=== PATIENT | male | born 1955 | race Caucasian/White ===

== ENCOUNTER 2016-12-21 03:14 | Inpatient (IN) | payer OTHER ==
[~2016-12-21] VITALS: Ht 182.9 cm; Wt 128.4 kg
[~2016-12-21 03:14] MED LIST: AMLODIPINE BESYL5 M1 PO; CRESTOR20 M2 PO; GLUCOPHAGE500 M1 PO; HYZAAR 100-251 EACH PO; PAXIL30 M1 PO
--- NOTE | 2016-12-21 09:30 | Admission Core Measures ---
Admission Meds I reviewed the following Meds: Current Medications Sig/Aureliano Start time Last Medication Dose Stop Time Status Admin Acetaminophen 975 MG ONCE 12/21 0000 NR (Tylenol) 12/21 2358 Amlodipine Besylate 5 MG DAILY 12/21 1000 AC (Norvasc) Atorvastatin Calcium 80 MG 1700 12/21 170 AC (Lipitor) Cefazolin Sodium 3,000 MG ONCE 12/21 0000 NR (Kefzol-Ancef Inj) 12/21 2358 Metformin HCl 250 MG BID 12/21 999 AC (Glucophage) Oxycodone HCl 10 MG ONCE 12/21 0000 NR (Roxicodone) 12/21 2358 Paroxetine HCl 30 MG DAILY 12/21 999 AC (Paxil) Acute Coronary Syndrome Inclusion Criteria ACS Diagnosis No Inpatient Core Measures LDL Reminder: If No, please order W/I first 24hr of stay Congestive Heart Failure Inclusion Criteria CHF Diagnosis No Cerebrovascular accident Inclusion Criteria CVA/TIA Diagnosis No Inpatient Core Measures Bedside Swallow Eval Reminder: If BSE failed, place ST order Antithrombotic Reminder: Order Antithrombotic Medication by end of day 2 Antithrombotic Reminder: Document Reason Antithrombotic Not ordered by end of day 2 AFIB/Flutter Reminder: If Present, add to problem list AFIB/Flutter Reminder: Order Anticoag Medication for pts with AFIB/Flutter Atherosclerosis Reminder: If Present, add to problem list LDL Reminder: If No, please order W/I first 24hr of stay PT Order Reminder: If No, please order Venous thromboembolism Inpatient Core Measures VTE Risk Factors: Age > 40, Surgery No [facility] VTE prophylaxis d/t No contraindications No VTE Pharm Prophylaxis d/t No contraindications Inclusion Criteria - Per Current guidelines, there needs to be overlap - treatment for the first 5 days of Warfarin therapy. - Parenteral Anticoagulation (IV or SC) needs to be - given along with Warfarin therapy. VTE Diagnosis No VTE Type NONE VTE Confirmed by (Test) NONE Problem List As ranked by this Provider includes Assessment & Plan 1. Status post total hip replacement, right HOME MEDS Home Med List Amlodipine Besylate 5 MG TABLET 1 TAB PO DAILY HTN (Reported) Losartan/Hydrochlorothiazide (Hyzaar 100-25 Tablet) 100 MG-25 MG TABLET 1 TAB PO DAILY HTN (Reported) Metformin Hydochloride (Glucophage) 500 MG TABLET 1 TAB PO DAILY DM II ( Reported) Paroxetine HCl (Paxil) 30 MG TABLET 1 TAB PO DAILY ANXIETY / DEPRESSION ( Reported) Rosuvastatin Calcium (Crestor) 20 MG TABLET 1 TAB PO DAILY CHOLESTEROL ( Reported)
--- NOTE | 2016-12-21 09:33 | Surgical Discharge Summary ---
Visit Information Visit Dates Admission Date: 12/21/16 Discharge Date: 12/22/16 History of Present Illness Chief Complaint: RIGHT HIP PAIN, OSTEOARTHRITIS Surgical History Pertinent Surgical History: unobtainable Review of Systems: SEE H&P Hospital Course Course Attending Physician: JOHN WOO MD Primary Care Physician: ADRIANA CASE MD Hospital Course: Patient was admitted to the hospital for an elective total joint replacement. Procedure was tolerated well and patient was transferred to a general surgical floor. Diet was advanced and tolerated and patient voided spontaneously. PT evaluated and treated. At time of discharge, vital signs were stable and within normal limits, neurovascular status was intact, and pain was controlled with oral pain medications. Complications: None Allergies: Coded Allergies: No Known Allergies (12/20/16) Disposition Summary Disposition Principal Diagnosis: Right hip pain, osteoarthritis Additional Diagnosis: same, s/p right total hip replacement (anterior approach) Discharge Disposition: home health services Discharge Instructions General Discharge Information Code Status: Full Code Patient's Diet: diabetic diet as tolerated Patient's Activity: weight bearing as tolerated. rolling walker assistance as needed. Follow-Up Instructions/Appts: Follow up with Dr. Woo in 6 weeks from date of surgery, contact office to arrange/confirm this appointment Medications at Discharge Discharge Medications: Continue taking these medications: Amlodipine Besylate (Amlodipine Besylate) 5 MG TABLET 1 Tablet ORAL DAILY Comments: Last Taken: 12/22/16 Time: 1000 AM Losartan/Hydrochlorothiazide (Hyzaar 100-25 Tablet) 100 MG-25 MG TABLET 1 Tablet ORAL DAILY Comments: NOT GIVEN IN HOSPITAL Metformin Hydochloride (Glucophage) 500 MG TABLET 1 Tablet ORAL DAILY Comments: 250 MG Last Taken: 12/22/16 Time: 1000 AM Paroxetine HCl (Paxil) 30 MG TABLET 1 Tablet ORAL DAILY Comments: Last Taken: 12/22/16 Time: 1000 AM Rosuvastatin Calcium (Crestor) 20 MG TABLET 1 Tablet ORAL DAILY Comments: Last Taken: 12/21/16 Time: 5:00 PM Start taking the following new medications: Aspirin (Ecotrin*) 325 MG TABLET.DR 1 Tablet ORAL TWICE DAILY Qty = 60 No Refills Comments: Last Taken: 12/22/16 Time: 10:00 AM Docusate Sodium (Colace) 100 MG CAPSULE 1 Capsule ORAL TWICE DAILY Days = 7 No Refills Instructions: STOP TAKING IF YOU DEVELOP LOOSE STOOL/DIARRHEA Comments: Last Taken: 12/22/16 Time: 1000 AM Polyethylene Glycol 3350 (Miralax) 17 GRAM POWD.PACK 1 Packet ORAL DAILY Days = 7 No Refills Instructions: dissolve in water. STOP TAKING IF YOU DEVELOP LOOSE STOOL/DIARRHEA Comments: Last Taken: 12/22/16 Time: 1000 AM Hydromorphone HCl (Dilaudid) 2 MG TABLET 1-2 Tablet ORAL EVERY 4-6 HOURS NEEDED as needed for PAIN Qty = 36 No Refills Comments: Last Taken: 12/22/16 Time: 0940 AM Morphine Sulfate (Ms Contin) 30 MG TABLET.ER 1 Tablet ORAL TWICE DAILY Qty = 5 No Refills Copies To: EVIE KINGSLEY,ADRIANA Reynolds
--- NOTE | 2016-12-21 09:36 | Patient Discharge Instructions ---
Discharge Instructions General Discharge Information You were seen/treated for: right hip pain, osteoarthritis You had these procedures: right total hip replacement, anterior approach Watch for these problems: fever>101.3, increased pain, redness/swelling/drainage, shortness of breath, chest pains, dizziness No bath, but you may shower: Yes Other wound care: see pre-printed sheet Diet Continue normal diet: Yes Recommended Diet: Diabetic Activity Full Activity/No Limits: Yes Activity Self Limited: Yes Activity Limited to: Weight bear as tolerated Other activity limits: rolling walker assistance as needed. continue PT. Acute Coronary Syndrome Inclusion Criteria At DC or during hospital stay patient has or had the following: ACS DIAGNOSIS No Discharge Core Measures Meds if any: Prescribed or Continued at Discharge Meds if any: NOT Prescribed or Continued at Discharge Congestive Heart Failure Inclusion Criteria At DC or during hospital stay patient has or had the following: CHF DIAGNOSIS No Discharge Core Measures Meds if any: Prescribed or Continued at Discharge Meds if any: NOT Prescribed or Continued at Discharge Cerebrovascular accident Inclusion Criteria At DC or during hospital stay patient has or had the following: CVA/TIA Diagnosis No Discharge Core Measures Meds if any: Prescribed or Continued at Discharge Meds if any: NOT Prescribed or Continued at Discharge Venous thromboembolism Inclusion Criteria VTE Diagnosis No VTE Type NONE VTE Confirmed by (Test) NONE Discharge Core Measures - Per Current guidelines, there needs to be overlap - treatment for the first 5 days of Warfarin therapy. - If discharged on Warfarin prior to 5 days of - overlap therapy, the patient will need to be - assessed for post discharge needs including - *Post discharge parental anticoagulation - *Warfarin and/or parental anticoagulation education - *Follow up date to check INR post discharge At least 5 days overlap therapy as Inpatient No Meds if any: Prescribed or Continued at Discharge Note: Overlap Therapy is Warfarin and Anticoagulant Meds if any: NOT Prescribed or Continued at Discharge
--- NOTE | 2016-12-21 12:12 | RADIOLOGY REPORT ---
EXAMINATION: XR HIP, RIGHT CLINICAL INFORMATION: Status post total hip replacement. COMPARISON: No relevant prior imaging is available. TECHNIQUE: Two views of the right hip. FINDINGS: There are expected postoperative changes following a right total hip arthroplasty. The components of the arthroplasty are intact. No dislocation. No evidence of acute periprosthetic fracture. Soft tissues are unremarkable. IMPRESSION: Expected postoperative changes of a right total hip arthroplasty. No dislocation.
[2016-12-21 13:24] VITALS: BP 152/92
--- NOTE | 2016-12-21 13:30 | NUR ---
ADMISSION NOTE: PT ARRIVED TO FLOOR IN [facility] WITH DISTRIBUTION, A/OX3, RA, IV SITE INTACT, SURG DSG TO RT HIP, C/D/I, NO DURACOLD, +CMS, PAIN 10/24, VSS,ORIENTED TO ROOM, RESTING IN BED AT BEDSIDE. WILL CONTINUE TO MONITOR.
[2016-12-21 15:31] VITALS: BP 122/78
--- NOTE | 2016-12-21 16:23 | PN- Orthopedic ---
Subjective Subjective: Patient received on general surgical floor. Is pod 0 s/p right thr, tolerated procedure but noted difficulty ambulating postoperatively due to dizziness, will be admitted to hospital for recovery. Denies chest pain, shortness of breath, and difficulty breathing. Denies nause and vomitting. Objective Vital Signs and I&Os Vital Signs Date Time Temp Pulse Resp B/P B/P Pulse O2 O2 Flow FiO2 Mean Ox Delivery Rate 12/21 1531 98.4 65 20 122/78 95 Room Air 12/21 1324 96.9 63 18 152/92 96 Room Air Intake & Output 12/21 1600 12/21 0800 12/21 0000 12/20 1600 12/20 0800 12/20 0000 Intake Total Output Total Balance Patient 283 lb 284 lb Weight Weight Reported by Patient Measurement Method Physical Exam: General: Alert and oriented x3, no acute distess Cardiac: RRR, s1s2 Pulmonary: C T A bilaterally Abdomen: Non-tender, non-distended Extremities: Moves all extremities, distal sensation intact. Motor 5/5 in plantar and dorsiflexion bilaterally. Skin warm and well perfused. Bilateral calves soft and non-tender Surgical site: Right hip. Dressing dry and intact. Thigh compartment soft. Assessment/Plan Assessment/Plan This is a 61 year old male, POD 0, s/p Right WALDEMAR. Experienced dizziness when ambulating post operatively, that has since resolved. -Continue IV fluids -Continue diet as tolerated -WBAT on RLE, PT -DVT ppx: ASA 325 bid -ALPS/ambulation for mechanical ppx, teds at discharge -Ancef 2 grams for 2 additional doses for dvt ppx -Antcipate discharge to home in one day -Will d/w Dr Bedoya Core Measures/Miscellaneous Venous Thromboembolism VTE Risk Factors: Age > 40, Surgery VTE Contraindications: No Contraindications VTE Diagnosis: No VTE Type: NONE VTE Confirmed by (Test): NONE Beta Anam Is Beta Anam a Home Med? No Antibiotics Is Patient on Antibiotics? Yes If Yes: prophylaxis
--- NOTE | 2016-12-21 16:39 | Operative Report ---
Operative/Inv Procedure Report Surgery Date: 12/21/16 Name of Procedure: Right total hip replacement Pre-Operative Diagnosis: Primary right hip DJD Post-Operative Diagnosis: Same Estimated Blood Loss: 400 Surgeon/Chronometer Repairer: AMNA KINGSLEY,JOHN Jimenez Anesthesia: block Operative/Procedure Note Note: Description of Procedure: The patient was taken to the operating room and positively identified. After induction of spinal anesthesia and administration of appropriate pre-operative antibiotics, the patient was positioned supine on the operating room table and all bony prominences were well padded. After performing a surgical timeout, the right lower extremity was prepped and draped in the usual sterile fashion. A direct anterior approach was made to the right hip. The incision was carried sharply through superficial soft tissues to the level of the fascia. Meticulous hemostasis was maintained with Bovie electocautery. The fascia over the tensor fascia darian muscle was opened sharply and the interval between the TFL and the sartorius was entered bluntly taking care to stay lateral to the lateral femoral cutaneous nerve. Retractors were placed around the femoral neck and the pericapsular fat was identified. The ascending branches of the lateral femoral circumflex vessels were identified and carefully coagulated. The pericapsular fat and anterior capsule were then resected. A napkin ring osteotomy was performed and the femoral head was removed without difficulty. Attention was then turned to the acetabulum. After appropriate placement of retractors, the acetabulum was exposed. Soft tissue was cleaned from the acetabular margin and notch. Overhanging osteophytes were removed and the teardrop was exposed. The acetabulum was then sequentially reamed to accept a 66 mm Michael Tritanium hemispherical solid back shell. This was impacted into place in the appropriate position and fitted with a 36 mm Trident X3 zero degree polyethylene insert. Attention was then turned to the femur. After performing the appropriate ligament releases, the proximal femur was exposed. It was then sequentially broached to accept a size 9 [place]view accolade 2 stem. This was trialed for leg length and stability. The trial component was removed and the final component was impacted into place. The trunnion was carefully cleaned and fit with a 36 mm, +5 Biolox delta ceramic femoral head. The hip was reduced and put through a full range of motion and found to be stable. The articular space was then irrigated with sterile saline. The periarticular soft tissues were infilitrated with Marcaine. The fascial layer was closed with interrupted #1 vicryl suture and the skin was re-approximated with interrupted 2 -0 vicryl. The skin was closed with a running 3-0 V-Lock suture. Steri-strips and a sterile dressing were applied. The patient was awakened and taken to the recovery room in satisfactory condition.
[2016-12-21 17:30] VITALS: BP 136/80
[2016-12-21 19:30] VITALS: BP 134/80
[2016-12-21] MEDS ORDERED: DILAUDID2 M1 PO (20:09)
[2016-12-21] MEDS ORDERED: ASPIRIN EC325 M2 PO (20:09)
[2016-12-21] MEDS ORDERED: COLACE100 M1 PO (20:09)
[2016-12-21] MEDS ORDERED: MS CONTIN30 M1 PO (20:09)
[2016-12-21] MEDS ORDERED: MIRALAX17 G1 PO (20:09)
[2016-12-21 23:46] VITALS: BP 148/84
[2016-12-22 03:59] VITALS: BP 154/82
[2016-12-22 06:25] VITALS: BP 148/82
--- NOTE | 2016-12-22 09:06 | PN- Orthopedic ---
Subjective Subjective: Patient with pain overnight however feeling much better this morning. He is voiding, he denies any nausea or vomiting or chest pain. Pain medication is helping him. No fever. Objective Vital Signs and I&Os Vital Signs Date Time Temp Pulse Resp B/P B/P Pulse O2 O2 Flow FiO2 Mean Ox Delivery Rate 12/22 624 99.5 82 22 148/82 96 06/08 0359 99.2 78 20 154/82 94 /08 0206 77 95 06/07 2346 98.5 82 22 148/84 97 Room Air 06/07 1930 99.2 81 20 134/80 94 Room Air 06/07 1844 Room Air 06/07 1730 98.9 74 20 136/80 97 Room Air /07 1531 98.4 65 20 122/78 95 Room Air /07 1324 96.9 63 18 152/92 96 Room Air Intake & Output 12/22 1600 /08 0800 06/08 0000 / 1600 /07 0800 06/07 0000 Intake Total 840 465 Output Total 1900 975 Balance -1060 -510 Intake, IV 600 225 Intake, Oral 240 240 Output, Urine 1900 975 Patient 283 lb Weight Weight Reported by Patient Measurement Method Physical Exam: Well-developed well-nourished no apparent distress. HEENT: Atraumatic, extraocular motion intact Neck: Supple, no lymphadenopathy Respiratory: No respiratory distress Extremities: No edema RIGHT lower extremity hip dressing in place, Dressing clean dry and intact with minimal bloody staining Mild thigh edema No signs of infection. No shortening or rotation Hip range of motion is limited and without unexpected pain Neurovascularly intact distally Bilateral calves are supple, nontender. Neuro: Alert and oriented x3 Psych: Mood affect normal, normal memory normal judgment. Skin: Warm and dry, no rash on exposed skin Results Last 48 Hours of Labs: Laboratory Tests 12/22 724 Chemistry Sodium (137 - 145 mmol/L) 134 L Potassium (3.5 - 5.1 mmol/L) 3.8 Chloride (98 - 107 mmol/L) 97 L Carbon Dioxide (22 - 30 mmol/L) 28 Anion Gap (5 - 16) 9 BUN (9 - 20 mg/dL) 16 Creatinine (0.7 - 1.2 mg/dL) 0.8 Estimated GFR (>60 ml/min) > 60 BUN/Creatinine Ratio (7 - 25 %) 20.0 Hematology CBC w Diff Pending WBC Pending RBC Pending Hgb Pending Hct Pending MCV Pending MCH Pending RDW Pending Plt Count Pending MPV Pending PUBS MCHC Pending Assessment/Plan Assessment/Plan Postop day #1 status post right total hip arthroplasty anterior approach Cleared physical therapy Aspirin for DVT prophylaxis Labs pending this morning, if stable, may discharge home today Discussed with patient, follow-up in 6 weeks Dressing change tomorrow by [facility] Core Measures/Miscellaneous Venous Thromboembolism VTE Risk Factors: Age > 40, Surgery VTE Contraindications: No Contraindications VTE Diagnosis: No VTE Type: NONE VTE Confirmed by (Test): NONE Beta Anam Is Beta Anam a Home Med? No Antibiotics Is Patient on Antibiotics? Yes If Yes: prophylaxis
[2016-12-22 09:09] LABS: ABSOLUTE BASOPHIL COUNT 0 /CUMM (0.0-0.2); ABSOLUTE EOSINOPHIL COUNT 0.1 /CUMM (0.0-0.7); ABSOLUTE GRANULOCYTE CT 6.5 /CUMM (1.4-6.5); ABSOLUTE LYMPH COUNT 1.9 /CUMM (1.2-3.4); ABSOLUTE MONOCYTE COUNT 1.1 /CUMM (0.10-0.60); BASOPHIL % 0.2 % (0.0-2.0); EOSINOPHIL % 0.7 % (0-5); GRANULOCYTE % 67.7 % (42.2-75.2); HEMATOCRIT 33.9 % (42-52); MEAN CORPUSCULAR HGB CONC 33.5 G/DL (33.0-37.0); MEAN CORPUSCULAR VOLUME 83.3 FL (80.0-94.0); MEAN PLATELET VOLUME 9.6 FL (7.4-10.4); PLATELET COUNT 195 /CUMM (130-400); RBC DISTRIBUTION WIDTH 13.9 % (11.5-14.5); RED BLOOD CELL CT 4.06 /CUMM (4.70-6.10); WHITE BLOOD CELL COUNT 9.6 /CUMM (4.8-10.8)
[2016-12-22 14:19] VITALS: BP 134/82
--- NOTE | 2016-12-22 18:10 | NUR ---
ALERT AND ORIENTED X 3. USES CPAP PRN. DENIES SHORTNESS OF BREATH. LUNGS CLEAR VITAL SIGNS STABLE. DENIES CHEST PAIN. + PULSES. DENIES NUMBNESS/TINGLING DSG TO RLE IS C/D/I. MEDICATION GIVEN FOR PAIN VERBALIZED UNDERSTANDING OF DISCHARGE PLAN
== END 2016-12-22 18:15 | disposition home health service (06) | DRG 470 ==
LOC: SDA 03:14 → 2NB 03:14 → ENRESERV 11:42 → ENTRNSPT 12:54 → EDTRNSPTSTS 12:57 → 2NB 13:07 → CMPTRNSPT 13:21 → ENPENDDIS 12-22 09:11 → 2NB 12-22 18:15
PROVIDERS: Physician Assistant Surgical; ADMIT Orthopaedic Surgery
PROC: 0SR904A Replacement of Right Hip Joint with Ceramic on Polyethylene Synthetic Substitute, Uncemented, Open Approach (ICD-10-PCS; principal; 2016-12-21)
DX: M16.11 Unilateral primary osteoarthritis, right hip (principal); I10 Essential (primary) hypertension; F41.8 Other specified anxiety disorders; E11.9 Type 2 diabetes mellitus without complications; Z79.84 Long term (current) use of oral hypoglycemic drugs; E78.5 Hyperlipidemia, unspecified; K21.9 Gastro-esophageal reflux disease without esophagitis; G47.33 Obstructive sleep apnea (adult) (pediatric)
CPT/HCPCS: 2NBP; 36415; 73502-RT; 82436; 88304; 97110-GO; 97116-GO; 97161-GP; J0690; J0735; J2550; J7042